=== PATIENT | male | born 1945 | race Caucasian/White ===

== ENCOUNTER 2019-12-18 12:19 | Observation (INO) | payer OTHER ==
[2019-12-10 11:27] LABS: Basophils # (Auto) 0.1 K/mm3 (0.0-0.1); Basophils % (Auto) 2.6 % (0.0-1.8); Eosinophils # (Auto) 0.2 K/mm3 (0.0-0.4); Eosinophils % (Auto) 3.4 % (0.0-4.3); Hematocrit 40.1 % (35.5-45.6); Hemoglobin 13.5 gm/dl (11.8-15.2); Lymphocytes # (Auto) 1.6 K/mm3 (1.2-5.4); Lymphocytes % (Auto) 27.5 % (13.4-35.0); Mean Corpuscular HGB Conc 34 % (32-34); Mean Corpuscular Volume 92 fl (84-94); Monocytes # (Auto) 0.5 K/mm3 (0.0-0.8); Monocytes % (Auto) 8.5 % (0.0-7.3); Platelet Count 160 K/mm3 (140-440); Red Blood Count 4.36 M/mm3 (3.65-5.03); Red Cell Distribution Width 15.2 % (13.2-15.2)
--- NOTE | 2019-12-10 11:33 | Anesthesia Consultation ---
Anesthesia Consult and Med Hx Date of service: 12/18/19 - Airway Anesthetic Teeth Evaluation: Dentures, Edentulous ROM Head & Neck: Adequate Mental/Hyoid Distance: Adequate Mallampati Class: Class II Intubation Access Assessment: Good - Pre-Operative Health Status ASA Pre-Surgery Classification: ASA2 Proposed Anesthetic Plan: General - Pulmonary Hx Smoking: Yes (QUIT 20 YRS AGO) Hx Respiratory Symptoms: No (Denies DEL ROSARIO. Active and states he can climb two flights of stairs) COPD: Yes (Pt states was told by one doctor and another one said no. Pt denies) Hx Sleep Apnea: No (KJ PRESCREEN HIGH) - Cardiovascular System Hx Hypertension: Yes Hx Peripheral Vascular Disease: Yes (Pt has stable TAA x 5 years. States annual US and unchanged) - Central Nervous System Hx Back Pain: Yes (NECK ALSO OCC.) Hx Psychiatric Problems: No - Gastrointestinal Hx Gastroesophageal Reflux Disease: Yes (Pt states prescribed omeprazole and denies GERD) - Hematic Hx Anemia: No - Other Systems Hx Alcohol Use: Yes (BEER 2-3 /DAY) Hx Substance Use: No Hx Cancer: Yes (SKIN CA ON BACK REMOVED IN OFFICE)
[2019-12-10 11:41] LABS: Alanine Aminotransferase 12 units/L (7-56); Albumin 4.1 g/dL (3.9-5); BUN/Creatinine Ratio 22; Blood Urea Nitrogen 20 mg/dL (9-20); Hemolysis Index 15
[~2019-12-18 12:19] MED LIST: ceFAZolin/Water 2 GM/20 ML 2 GM/20 ML SYRINGE IV NR
[2019-12-18] MEDS ORDERED: GLYCOPYRROLATE 0.4 MG/2 ML INJ ONE (13:00)
[2019-12-18] MEDS ORDERED: LACTATED RINGERS 1,000 ML IV SCH (13:00)
[2019-12-18] MEDS ORDERED: LACTATED RINGERS 1,000 ML ONE (13:09)
[2019-12-18] MEDS ORDERED: LIDOCAINE MPF (2%) 20 MG/1 ML VIAL 5 ML ONE (13:12)
[2019-12-18] MEDS ORDERED: HYDROmorphone 1 MG/1 ML INJ ONE (13:12)
[2019-12-18] MEDS ORDERED: PROPOFOL 200 MG/20 ML VIAL IV ONE (13:12)
[2019-12-18] MEDS ORDERED: IOHEXOL 300 MG/ML 50ML IV ONE (13:48)
--- NOTE | 2019-12-18 14:16 | Consultation ---
History of Present Illness - Reason for Consult Consult date: 12/18/19 HTN, GERD, HLD Requesting physician: RINKU POSADAS - History of Present Illness 74-year-old male with HTN, HLD, COPD, GERD, gout, OA, PVD, alcohol dependence admitted for prostate surgery. Consult placed by Dr. Posadas for medical management. Patient seen and evaluated upon arrival to his room. Patient resting comfortably. Patient denies any current complaints. Patient denies fever, chills, chest pain, palpitations, productive cough, shortness of breath, leg pain, calf pain, recent ill contacts. No reported nursing events. Patient denies pain. Past History Past Medical History: GERD, hypertension, hyperlipidemia, other (See HPI) Past Surgical History: Other (Prostate surgery) Social history: single, alcohol abuse. denies: smoking Family history: hypertension Medications and Allergies Allergies Allergy/AdvReac Type Severity Reaction Status Date / Time No Known Allergies Allergy Verified 12/09/19 15:13 Home Medications Medication Instructions Recorded Confirmed Last Taken Type Alfuzosin HCl 10 mg PO DAILY 12/09/19 12/18/19 12/17/19 08:00 History Losartan 25 mg PO DAILY 12/09/19 12/18/19 12/18/19 08:00 History Naproxen Sodium [Aleve] 220 mg PO PRN PRN 12/09/19 12/18/19 Unknown History Omeprazole 40 mg PO DAILY 12/09/19 12/18/19 12/17/19 08:00 History Simvastatin 40 mg PO DAILY 12/09/19 12/18/19 12/17/19 21:00 History allopurinoL 300 mg PO DAILY 12/09/19 12/18/19 12/17/19 08:00 History Active Meds: Active Medications Cefazolin Sodium (Ancef/Sterile Water 2 Gm/20 Ml) 2 gm in 20 mls @ 80 mls/hr IV PREOP NR; Protocol Stop: 12/18/19 23:00 Review of Systems Constitutional: no weight loss, no weight gain, no fever, no chills Ears, nose, mouth and throat: no ear pain, no ear discharge, no tinnitis, no nose pain, no nasal discharge Cardiovascular: no chest pain, no orthopnea, no palpitations, no edema Respiratory: no cough, no cough with sputum, no excessive sputum, no hemoptysis, no shortness of breath Gastrointestinal: no abdominal pain, no nausea, no vomiting, no constipation, no change in bowel habits, no hematemesis Genitourinary Male: no hematuria, no urinary hesitancy, no nocturia, no incontinence Rectal: no pain, no incontinence, no bleeding Musculoskeletal: no neck stiffness, no neck pain, no shooting arm pain, no arm numbness/tingling Integumentary: no rash, no pruritis, no redness, no sores, no jaundice Neurological: no head injury, no transient paralysis, no paralysis, no weakness, no parathesias, no numbness, no tingling Psychiatric: no anxiety, no change in sleep habits, no sleep disturbances, no hypersomnia, no change in appetite, no change in libido, no disorientation Endocrine: no cold intolerance, no heat intolerance, no polyphagia, no excessive thirst, no polyuria, no excessive sweating Hematologic/Lymphatic: no easy bruising, no easy bleeding, no lymphadenopathy, no lymphedema Allergic/Immunologic: no urticaria, no allergic rhinitis, no persistent infections Exam - Constitutional Vitals: Temp Pulse Resp BP Pulse Ox 97.3 F L 68 20 122/72 97 12/10/19 11:00 12/10/19 11:00 12/10/19 11:00 12/10/19 11:00 12/10/19 11:00 General appearance: Present: no acute distress, well-nourished - EENT Eyes: Present: PERRL ENT: hearing intact, clear oral mucosa - Neck Neck: Present: supple, normal ROM - Respiratory Respiratory effort: normal Respiratory: bilateral: CTA - Cardiovascular Heart Sounds: Present: S1 & S2. Absent: rub, click - Extremities Extremities: pulses symmetrical, No edema Peripheral Pulses: within normal limits - Abdominal General gastrointestinal: Present: soft, non-tender, non-distended, normal bowel sounds Male genitourinary: Present: normal - Integumentary Integumentary: Present: clear, warm, dry - Musculoskeletal Musculoskeletal: gait normal, strength equal bilaterally - Psychiatric Psychiatric: appropriate mood/affect, intact judgment & insight - Neurologic Neurologic: CNII-XII intact, moves all extremities Results - Labs CBC & Chem 7: 12/10/19 10:59 12/10/19 10:59 Assessment and Plan - Patient Problems (1) Hypertension Current Visit: Yes Status: Acute Qualifiers: Hypertension type: essential hypertension Qualified Code(s): I10 - Essential (primary) hypertension Plan to address problem: Monitor blood pressure every shift, continue medical management (2) Hyperlipidemia Current Visit: Yes Status: Acute Qualifiers: Hyperlipidemia type: mixed hyperlipidemia Qualified Code(s): E78.2 - Mixed hyperlipidemia Plan to address problem: Low-fat/low-cholesterol diet, statin therapy as clinically indicated. (3) Alcohol dependence Current Visit: Yes Status: Acute Qualifiers: Complication of substance-induced condition: uncomplicated Plan to address problem: Thiamine, folic acid, multivitamin, CIWA protocol. (4) COPD (chronic obstructive pulmonary disease) Current Visit: Yes Status: Acute Qualifiers: Chronic bronchitis type: unspecified Plan to address problem: Supplemental oxygen, nebulizer therapy, incentive spirometry, early ambulation. (5) Osteoarthritis Current Visit: Yes Status: Acute Qualifiers: Laterality: unspecified laterality Plan to address problem: Supportive care, NSAID therapy as clinically indicated.
[2019-12-18] MEDS ORDERED: ZOLPIDEM 5 MG TAB PO PRN (14:19)
[2019-12-18] MEDS ORDERED: HYDROcodone/ACETAMINOPHEN 5-325 MG TAB PO PRN (14:19)
[2019-12-18] MEDS ORDERED: MORPHINE 2 MG/1 ML INJ IV PRN (14:19)
[2019-12-18] MEDS ORDERED: NALOXONE 0.4 MG/1 ML INJ IV PRN (14:19)
[2019-12-18] MEDS ORDERED: ONDANSETRON 4 MG/2 ML INJ IV PRN (14:19)
--- NOTE | 2019-12-18 14:19 | Short Stay Summary ---
Short Stay Documentation Date of service: 12/18/19 - History H&P: obtained from office - Allergies and Medications Current Medications: Allergies No Known Allergies Allergy (Verified 12/09/19 15:13) Home Medications Medication Instructions Recorded Confirmed Last Taken Type Aleve 2 tab PO PRN 12/09/19 12/09/19 12/07/19 History Alfuzosin HCl 10 mg PO DAILY 12/09/19 12/09/19 Unknown History Losartan 25 mg PO DAILY 12/09/19 12/09/19 Unknown History Omeprazole 40 mg PO DAILY 12/09/19 12/09/19 Unknown History Simvastatin 40 mg PO DAILY 12/09/19 12/09/19 Unknown History allopurinoL 300 mg PO DAILY 12/09/19 12/09/19 Unknown History Active Medications Cefazolin Sodium (Ancef/Sterile Water 2 Gm/20 Ml) 2 gm in 20 mls @ 80 mls/hr IV PREOP NR; Protocol Stop: 12/18/19 23:00 - Brief post op/procedure progress note Date of procedure: 12/18/19 Pre-op diagnosis: BPH Post-op diagnosis: same Procedure: CYSTO, TURP Anesthesia: GETA Surgeon: RINKU BARAHONA Estimated blood loss: minimal Pathology: list (PROSTATE CHIPS) Specimen disposition: to lab Condition: stable - Hospital course Hospital course: [facility]CO & BACTRIM family at bedside chavez looks good - pink urine pt want to remove chavez himself next monday morning before 10am appt 1 month - Disposition Condition at discharge: Stable Short Stay Discharge Plan Follow up with: [facility] [Primary Care Provider] - 7 Days
[2019-12-18] MEDS ORDERED: LORazepam 2 MG/ML VIAL IV PRN (14:25)
[2019-12-18] MEDS ORDERED: ALEVE PO SCH (14:30)
--- NOTE | 2019-12-18 14:44 | Operative Report ---
PREOPERATIVE DIAGNOSIS: Benign prostatic hypertrophy. POSTOPERATIVE DIAGNOSIS: Benign prostatic hypertrophy. PROCEDURE: Cystoscopy, bilateral retrograde pyelograms, transurethral resection of prostate. SURGEON: Juan Posadas MD ANESTHESIA: General. ESTIMATED BLOOD LOSS: Minimal. FLUIDS: Crystalloid. COMPLICATIONS: No complications. INDICATIONS: This patient is a 74-year-old gentleman seen in the office for evaluation of lower urinary tract symptoms, also has a history of gout, hyperlipidemia, hypertension. [facility] and has been on Proscar and Flomax and does not like the results. He underwent urodynamic testing in 10/2019. He was found to have a peak flow of 6 mL, second postvoid residual 12, bladder capacity 211 mL. Discussed options, also identified other risk factors such as several 3-4 cups of coffee a day and beer, but he agreed to proceed with surgical intervention. DESCRIPTION OF PROCEDURE: The patient was taken to the operative suite, placed in a supine position. After adequate general anesthesia, he was placed in a dorsal lithotomy position, prepped and draped in a sterile fashion. Pancystourethroscopy was performed with 22-Canadian Storz cystoscope, no urethral abnormalities, obvious trilobar prostatic obstruction. Bladder, no tumors or stones were noted. Diffuse trabeculation could be appreciated. Both ureteral orifices in normal position. Bilateral retrograde pyelograms were obtained with an 8-Canadian Jaimee catheter and 8 mL of contrast. No filling defects, some mild bilateral dilatation. Next, using a medium size loop, cutting and coag on 200, transurethral resection of the prostate was performed in a systematic fashion, taking down the median lobe and the right and left lateral lobes respectively. Chips were evacuated out with the Ellik evacuated. Obvious open channel could be appreciated at the end of the procedure. The verumontanum and external sphincter were both intact. The patient tolerated the procedure well and 22-Canadian 3-way to a Drummond drip was placed. Rectal exam was benign. He was extubated and taken to recovery room. He will be observed overnight and go home on Bactrim and [place]. JOB# [id number] C/NTS
--- NOTE | 2019-12-18 14:52 | Anesthesia Day of Surgery ---
Anesthesia Day of Surgery - Day of Surgery Patient Examined: Yes Patient H&P Reviewed: Yes Patient is NPO: Yes Beta Blockers: No Cardiac Clearance: No Pulmonary Clearance: No Real's Test: N/A
--- NOTE | 2019-12-18 14:54 | Post Anesthesia Evaluation ---
- Post Anesthesia Evaluation Patient Participated: Yes Airway Patent: Yes Stable Respiratory Function: Yes Nausea/Vomiting: Yes Temp > 96.8F: Yes Pain Manageable: Yes Adequeate Hydration: Yes Anesthesia Complications: No Patient on Ventilator: No
[2019-12-18] MEDS ORDERED: SODIUM CHLORIDE IRRI 2000 ML 2,000 ML ONE (14:56)
--- NOTE | 2019-12-18 15:21 | Fluoroscopy Report ---
FL retrograde urography INDICATION / CLINICAL INFORMATION: ENLARGED PROSTATE LOWER URINARY SYMPTOMS. COMPARISON: None available. FINDINGS: Bilateral retrograde examinations performed. Negative for obstruction or filling defect. Fluoroscopy time: 26 seconds. Fluoroscopic images: 6. Signer Name: Ramón Mohan MD Signed: 12/18/2019 3:16 PM Workstation Name: [id number]
[2019-12-18] MEDS ORDERED: THIAMINE 100 MG TAB PO SCH (16:00)
[2019-12-18] MEDS ORDERED: MULTIVITAMINS ,THERAPEUTIC TAB PO SCH (16:00)
[2019-12-18] MEDS ORDERED: FOLIC ACID 1 MG TAB PO SCH (16:00)
[2019-12-18] MEDS ORDERED: PRAVASTATIN 80 MG TAB PO SCH (22:00)
[2019-12-18] MEDS: ceFAZolin/NS 1 GM/50 ML 1 GM/50 ML BAG IV SCH (22:50)
[2019-12-19] MEDS ORDERED: SODIUM CHLORIDE 0.9% IRRIG SOLN 2000 ML IR SCH (02:00)
[2019-12-19] MEDS: ceFAZolin/NS 1 GM/50 ML 1 GM/50 ML BAG IV SCH (05:56)
[2019-12-19 08:25] LABS: Hemoglobin 11.2 gm/dl (11.8-15.2); Mean Corpuscular HGB Conc 34 % (32-34); Mean Corpuscular Volume 90 fl (84-94); Platelet Count 110 K/mm3 (140-440); Red Blood Count 3.65 M/mm3 (3.65-5.03); Red Cell Distribution Width 15.1 % (13.2-15.2)
[2019-12-19 08:48] VITALS: BP 175/77
[2019-12-19 08:50] LABS: BUN/Creatinine Ratio 10; Blood Urea Nitrogen 9 mg/dL (9-20); Hemolysis Index 7
[2019-12-19 09:22] LABS: Anisocytosis Few; Basophils % (Manual) 0 % (0.0-1.8); Ovalocytes Few; Poikilocytosis Few; Total Cells Counted 100
[2019-12-19 09:23] LABS: Platelet Estimate Consistent w Auto
[2019-12-19] MEDS ORDERED: NON-FORMULARY EACH (Simvastatin 40 MG) PO SCH (10:00)
[2019-12-19] MEDS ORDERED: LOSARTAN 25 MG TAB PO SCH (10:00)
[2019-12-19] MEDS ORDERED: NON-FORMULARY EACH (Allopurinol 300 MG) PO SCH (10:00)
[2019-12-19] MEDS ORDERED: NON-FORMULARY EACH (Omeprazole 40 MG) PO SCH (10:00)
[2019-12-19] MEDS ORDERED: NON-FORMULARY EACH (Losartan 25 MG) PO SCH (10:00)
[2019-12-19] MEDS ORDERED: allopurinoL 300 MG TAB PO SCH (10:00)
[2019-12-19] MEDS ORDERED: ALFUZOSIN HCL 10 MG PO SCH (10:00)
[2019-12-19] MEDS ORDERED: PANTOPRAZOLE 40 MG TAB PO SCH (10:00)
== END 2019-12-19 12:30 | disposition home or self-care (01) ==
LOC: OR 12:19 → 3A 14:19 → 3B-SURG 15:06
PROVIDERS: ADMIT Urology; ATTEND Urology
DX: N40.0 Benign prostatic hyperplasia without lower urinary tract symptoms (principal)
CPT/HCPCS: 36415; 52005; 52601; 74420; 80048; 80053; 85007; 85025; 86850; 86900; 86901; 88305; 88341; 88342; 96365; 96366; A4217; A9270; G0378; J0690; J1170; J2704; J7120; Q9967